=== PATIENT | female | born 1945 | race Caucasian/White ===

== ENCOUNTER 2022-05-04 11:13 | Emergency (ER) | payer MEDICARE, OTHER, SELFPAY ==
[2022-05-04 11:38] VITALS: BP 150/79; PULSE 59; RESP 18; TEMP 36.8; O2SAT 96; BMI 24.6
--- NOTE | 2022-05-04 13:42 | ED_ITS ---
HPI - General Adult General Date Seen: 05/04/22 Chief complaint: Unspecified Complaint, Adult Stated complaint: Swollen right finger/ring stuck Time Seen by Provider: 05/04/22 13:27 History of Present Illness HPI narrative: Patient is a 76-year-old woman who had minor fall a few days ago. She bumped her right hand, she had some soreness in her fingers, and over the past couple of days has developed swelling in the right ring finger to the point where she has not been able to remove her ring. She says that she does not otherwise have any pain in the finger and does not suspect any injury, but she can not remove the ring and because of that the finger is now painful. Denies any other injuries or complaints. Related Data Home Medications Medication Instructions Recorded Confirmed No Known Home Medications 05/04/22 05/04/22 Allergies Allergy/AdvReac Type Severity Reaction Status Date / Time No Known Drug Allergies Allergy Verified 05/04/22 11:38 [facility] Medical History (Updated 05/04/22 @ 13:46 by Adelina Hernandez RN) Clavicular asymmetry No significant past medical history Social History Smoking Status: Never smoker Do you use any of these nicotine containing products: None Second hand tobacco smoke exposure: Yes How often do you have a drink containing alcohol: never AUDIT-C Alcohol total score: 0 Non-prescribed substance use: denies use Exam Narrative: Exam Narrative: Examination of the right hand shows that the right ring finger is swollen and mildly discolored. She does not have any bony tenderness. Const: Vital Signs, click to edit/add: Vital Signs - 24 hr 05/04/22 11:38 Temperature 98.2 F Pulse Rate [Right Pulse Oximeter] 59 L Respiratory Rate 18 Blood Pressure [Ri ght Upper Arm] 150/79 H Pulse Oximetry 96 Documenting provider has reviewed patient's vital signs: yes Course Course Hospital Course: The ring on right ring finger was removed using the ring remover. She feels significantly improved. Has no other complaints and is ready for discharge. Vital Signs Vital signs: Initial Vital Signs Temperature 98.2 F 05/04/22 11:38 Temperature Source Temporal Artery Scan 05/04/22 11:38 Pulse Rate 59 L 05/04/22 11:38 Respiratory Rate 18 05/04/22 11:38 Blood Pressure 150/79 H 05/04/22 11:38 Blood Pressure Mean 102 07/05/22 11:38 Blood Pressure Position Sitting 05/04/22 11:38 Pulse Oximetry 96 05/04/22 11:38 Oxygen Delivery Method 05/04/22 11:38 Vital Signs Temperature 98.2 F 05/04/22 11:38 Pulse Rate 59 L 05/04/22 11:38 Respiratory Rate 18 05/04/22 11:38 Blood Pressure 150/79 H 05/04/22 11:38 Pulse Oximetry 96 05/04/22 11:38 Temperature 98.2 F 05/04/22 11:38 Pulse Rate 59 L 05/04/22 11:38 Respiratory Rate 18 05/04/22 11:38 Blood Pressure 150/79 H 05/04/22 11:38 Pulse Oximetry 96 05/04/22 11:38 Discharge Plan Discharge Clinical Impression: Ring or other jewelry causing external constriction, initial encounter Patient Disposition: Home, Self-Care Condition: Improved Additional Instructions: Return as needed Prescriptions: No Action No Known Home Medications 0RF Stand Alone Forms: MyHealth Info Instructions
== END 2022-05-04 13:55 | disposition home or self-care (01) ==
LOC: ED 13:59
PROVIDERS: Emergency Provider Emergency Medicine
DX: M79.644 Pain in right finger(s) (principal); W49.04XA Ring or other jewelry causing external constriction, initial encounter
CPT/HCPCS: 99282

== ENCOUNTER 2024-08-05 13:28 | Emergency (ER) | payer MEDICARE, OTHER, SELFPAY ==
[2024-08-05 13:44] VITALS: BP 123/72; PULSE 72; RESP 20; TEMP 36.6; O2SAT 97; BMI 22.1
[2024-08-05 13:54] VITALS: TEMP 36.3
--- NOTE | 2024-08-05 14:25 | CRLHL7_ITS ---
For Patients: As a result of the Century Cures Act, medical imaging exams and procedure reports are released immediately into your electronic medical record. You may view this report before your referring provider. If you have questions, please contact your health care provider. INDICATION: Vertigo, neck pain. TECHNIQUE: CTA neck with contrast bolus tracking, 3D angiographic rendering using maximum intensity projection (MIP) and images permanently archived. FINDINGS: There is minor left carotid atherosclerosis. There is no significant carotid artery stenosis or dissection. There is no significant vertebral artery stenosis or dissection. The soft tissues of the neck are within normal limits. The cervical spine is in normal alignment. The C4-C5-C6 vertebrae are fused Degenerative changes are noted in the cervical spine. IMPRESSION: No significant carotid or vertebral artery stenosis or dissection. Please note that all CT scans at this facility use dose modulation, iterative reconstruction, and/or weight-based dosing when appropriate to reduce radiation dose to as low as reasonably achievable. Dictated by Jeffrey Karimi MD @ 08/06/2024 6:18:36 AM (Electronically Signed)
--- NOTE | 2024-08-05 14:25 | CRLHL7_ITS ---
For Patients: As a result of the Century Cures Act, medical imaging exams and procedure reports are released immediately into your electronic medical record. You may view this report before your referring provider. If you have questions, please contact your health care provider. INDICATION: Vertigo, neck pain. TECHNIQUE: CTA head with contrast bolus tracking, 3D angiographic rendering using maximum intensity projection (MIP) and images permanently archived. FINDINGS: There is scattered intracranial atherosclerotic disease. There is normal opacification of the intracranial vasculature. There is no large vessel occlusion. No aneurysm is identified. 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 IMPRESSION: No acute intracranial abnormality at CTA. Please note that all CT scans at this facility use dose modulation, iterative reconstruction, and/or weight-based dosing when appropriate to reduce radiation dose to as low as reasonably achievable. Dictated by Jeffrey Karimi MD @ 08/06/2024 6:16:23 AM (Electronically Signed)
--- NOTE | 2024-08-05 14:25 | CRLHL7_ITS ---
For Patients: As a result of the Century Cures Act, medical imaging exams and procedure reports are released immediately into your electronic medical record. You may view this report before your referring provider. If you have questions, please contact your health care provider. Indication: VERTIGO, NECK PAIN, H/O LEFT SUBCLAV ANUER REPAIR Technique: Noncontrast axial CT of the cervical spine with coronal and sagittal reformats are provided. Comparison: No prior studies available for comparison at this institution. Findings: There is straightening of normal cervical spine alignment. Advanced degenerative changes at the atlantoaxial articulation. 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 No aggressive osseous lesions. No prevertebral or paraspinal edema. 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 Surgical clips in the left supraclavicular region. C1-2: No spinal canal stenosis. C2-3: No significant spinal canal stenosis or neural foraminal narrowing. C3-4: Grade 1 anterolisthesis. Advanced facet arthrosis. No significant spinal canal stenosis. [id number] right and mild left neural foramen narrowing. C4-5: No significant spinal canal stenosis or neural foramen narrowing. C5-6: No significant spinal canal stenosis or neural foraminal narrowing. C6-7: Moderate interspace narrowing. Shallow disc osteophyte complex. Left uncovertebral joint hypertrophy. No significant spinal canal stenosis or neural foraminal narrowing. C7-T1: No significant spinal canal stenosis or neural foramen narrowing. Impression: 1. No acute osseous abnormality. 2. 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 3. No significant spinal canal stenosis. 4. Mild to moderate right neural foraminal narrowing at C3-4. Otherwise no significant foraminal stenosis. Please note that all CT scans at this facility use dose modulation, iterative reconstruction, and/or weight-based dosing when appropriate to reduce radiation dose to as low as reasonably achievable. Dictated by Shane Cervantes MD @ 08/05/2024 4:10:31 PM (Electronically Signed)
--- NOTE | 2024-08-05 14:26 | CRLHL7_ITS ---
For Patients: As a result of the Century Cures Act, medical imaging exams and procedure reports are released immediately into your electronic medical record. You may view this report before your referring provider. If you have questions, please contact your health care provider. INDICATION: Vertigo, neck headache, history of left subclavian aneurysm repair TECHNIQUE: CT Head without i.v. contrast. Coronal and sagittal reformats were obtained. COMPARISON: None FINDINGS: CSF space: Unremarkable for age. Brain: No evidence of mass, acute infarction or hemorrhage is seen. No mass-effect or midline shift is seen. Mild diffuse cortical atrophy is noted. Encephalomalacia is present within the left frontal lobe. Calvarium: The visualized paranasal sinuses are well aerated. The mastoid air cells are clear. The patient is status post prior bilateral cataract removal. The visualized orbits are grossly unremarkable. The calvarium is unremarkable in appearance with no fractures identified. IMPRESSION: 1. No evidence of acute infarction, intracranial hemorrhage, or mass-effect seen. Dictated by Mack Pelletier MD @ 08/05/2024 4:02:30 PM Please note that all CT scans at this facility use dose modulation, iterative reconstruction, and/or weight-based dosing when appropriate to reduce radiation dose to as low as reasonably achievable. Dictated by: Mack Pelletier MD @ 08/05/2024 16:02:35 (Electronically Signed)
--- NOTE | 2024-08-05 14:26 | ED_ITS ---
HPI - General Adult General Date Seen: 08/05/24 Chief complaint: Dizziness/Vertigo Stated complaint: Dizziness Time Seen by Provider: 08/05/24 13:42 History of Present Illness HPI narrative: Very pleasant 78-year-old female presenting to the ER today with her daughter. They referred from the local urgent care for evaluation of neck pain, vertigo, with recent chiropractor visits. She has a past medical history of subclavian aneurysm, repaired [facility] about 6 or 7 years ago, colon polyps, but is otherwise healthy. She has been experiencing some fairly severe posterior upper neck pain for the past several weeks. She has no recent trauma or any trigger for that. It has been getting worse as the time goes on. She has been using a travel pillow around her neck which help stabilize her head. She had been trying to see a sports medicine doctor but could not get into them so instead she went to see a chiropractor. She had had several visits his chiropractor where they did massages and gentle techniques but it does not sound like she had any twisting of her neck or a specific cervical ?manipulation. ?. Last chiropractor fingers was about 2 weeks ago. She saw her primary care provider for this neck pain and had an x-ray that apparently showed advanced degenerative disc disease. She is scheduled to have an MRI for her neck in about 10 days. She also notes that she has had some unsteadiness where she has been having bleeding against the wall or hold onto things while walking for perhaps the last week or 2. No other symptoms with that. No focal numbness or weakness. No headaches. No blurry vision or visual disturbance. No nausea. No chest pain. No palpitations. She was rolling over this morning at about 2:00 a.m. to get out of bed to go to the bathroom when she had abrupt onset of spinning unsteadiness and vertigo with nausea. It was very intense and she had to lay back on her back in the bed. The intense spinning lasted less than a minute and then resolved. Since then she has been mildly unsteady. She has had at least 4 other episodes triggered by change in position (for instance, bending forward to manipulate a foot switch for her lamp) of intense but self limited spinning vertigo. Other that she just has her normal amount of unsteadiness that is been present for the past couple of weeks. No visual disturbance today. No headache. No tinnitus. No change in hearing. No chest pain. No palpitations. No back pain. No abdominal pain. Her neck pain is still quite bothersome for her, but she is fairly stoic about it. She says that sometimes over the past week or 2 that her neck is gets so p ainful that her head feels heavy like she will be able to hold her head up. Related Data Home Medications ?Medication ?Instructions ?Recorded ?Confirmed aspirin 81 mg tablet,delayed 81 mg PO QDAY 09/26/23 08/05/24 release (Adult Aspirin Regimen) calcium carbonate (Calcium 600) 600 mg PO QDAY 09/26/23 08/05/24 cholecalciferol (vitamin D3) 10 10 mcg PO QDAY 09/26/23 08/05/24 mcg (400 unit) capsule [id number] 8 mg-folic 400 1 tab PO QDAY 09/26/23 08/05/24 mcg-K 50 mcg-lutein 300 mcg tablet (Centrum Silver Women) latanoprost 0.005 % eye drops drp ophthalmic (eye) 08/05/24 Previous Rx's ?Medication ?Instructions ?Recorded diazepam 2 mg tablet 2 mg PO TID PRN #10 tabs 08/05/24 ondansetron HCl 4 mg tablet 4 mg PO Q8H PRN nausea and 08/05/24 vomiting #10 tabs Allergies Allergy/AdvReac Type Severity Reaction Status Date / Time No Known Drug Allergies Allergy Verified 08/05/24 15:38 [facility] Medical History Right shoulder pain (~2018) ?M25.511 - Pain in right shoulder (ICD-10) Chest heaviness ?R07.89 - Other chest pain (ICD-10) 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 Alert. Conversant. Non toxic. HENT: Head: Atraumatic. Nose: Nose normal. Mouth/Throat: Oral mucosa is clear and moist. no trismus. Pharynx normal. Tonsils symmetric. No tonsillar enlargement, erythema, or exudate. Eyes: Conjunctivae normal. EOM normal. Pupils equal, round, and reactive to light. No scleral icterus. Neck: Wearing a travel pillow to help support her head. She is complaining of posterior upper neck pain but no specific point tenderness. No crepitus. No swelling. No rash. She has limited flexion and extension due to pain. She is able to rotate about 30? laterally but limited by pain.. Anterior Neck supple. No tracheal deviation present. Cardiovascular: Normal rate, regular rhythm. No gallop. No friction rub. No murmur heard. Symmetric radial artery pulses Pulmonary/Chest: Effort normal. No stridor. No respiratory distress. No wheezes. No rales. No rhonchi .No tenderness. Abdominal: Soft.. No distension. No mass. No tenderness. No rebound. No guarding. Musculoskeletal: RUE: Normal range of motion. No tenderness. No deformity LUE: Normal range of motion. No tenderness. No deformity RLE: Normal range of motion. No edema. No tenderness. No deformity LLE: Normal range of motion. No edema. No tenderness. No deformity Lymph: No cervical adenopathy. Neurological: Mental status normal. Attention normal. Alert and oriented x3. GCS 15. Memory normal. Speech fluent. Cognition normal. Cranial Nerves intact II-XII except I did not formally test gag or visual acuity. EOMI. Palate elevates symmetrically and tongue protrudes in the midline. Strength: 5/5 trapezius on the right and left 5/5 deltoid on the right and left 5/5 biceps on the right and left 5/5 triceps on the right and left 5/5 bookmaker map on the right and left 5/5 thumb opposition on the right and le ft 5/5 finger abduction on the right and le ft 5/5 hip flexors (L3) on the right and le ft 5/5 quadriceps (L4) on the right and lef t 5/5 tibialis anterior on the right and l eft 5/5 EHL (L5) on the right and left 5/5 gastrocnemius (S1) on the right and left 5/5 hamstring on the right and left Sensation intact to light touch in both upper extremities (C4-T1) Sensation intact to light touch in Both lower extremities (L4-S1). Finger to nose and coordination normal. Gait slow and she needs to lean against a doorjamb a she goes to the door. She is able to take a couple of steps without holding onto anything but then wants to lean against something. Gait is not really wide-based. . Skin: Skin is warm and dry. No rash noted. No pallor. Normal capillary refill. Psychiatric: Normal mood. Normal affect. Const: Vital Signs, click to edit/add: Vital Signs - 24 hr 08/05/24 13:44 08/05/24 13:54 08/05/24 16:00 Temperature 98 F 97.3 F L Pulse Rate [Pulse Oximeter] 72 70 Respiratory Rate 20 14 Blood Pressure [Ri ght Upper Arm] 123/72 149/77 H Pulse Oximetry 97 98 Oxygen Delivery Me thod Room Air Room Air 08/05/24 17:18 08/05/24 18:28 08/05/24 19:00 Temperature Pulse Rate [Pulse Oximeter] 62 95 Respiratory Rate 14 14 Blood Pressure [Ri ght Upper Arm] 143/60 H 143/68 H Pulse Oximetry 92 95 Oxygen Delivery Me thod Room Air Room Air Course Course ED Course: Recheck-not much improvement after meclizine. Reevaluation(s) Reevaluation #1: Recheck-reports feeling much better after diazepam 2.5 mg and Zofran 4 mg IV. Ambulating in the hallway in her own power. Vital Signs Vital signs: Initial Vital Signs Temperature 98 F 08/05/24 13:44 Temperature Source Temporal Artery Scan 08/05/24 13:44 Pulse Rate 72 08/05/24 13:44 Pulse Rhythm Regular 08/05/24 13:44 Respiratory Rate 20 08/05/24 13:44 Blood Pressure 123/72 08/05/24 13:44 Blood Pressure Mean 89 08/05/24 13:44 Pulse Oximetry 97 08/05/24 13:44 Oxygen Delivery Method Room Air 08/05/24 13:44 Vital Signs Temperature 98 F 08/05/24 13:44 Pulse Rate 72 08/05/24 13:44 Respiratory Rate 20 08/05/24 13:44 Blood Pressure 123/72 08/05/24 13:44 Pulse Oximetry 97 08/05/24 13:44 Oxygen Delivery Method Room Air 08/05/24 13:44 Temperature 97.3 F L 08/05/24 13:54 Pulse Rate 95 08/05/24 19:00 Respiratory Rate 14 08/05/24 19:00 Blood Pressure 143/68 H 08/05/24 19:00 Pulse Oximetry 95 08/05/24 18:28 Oxygen Delivery Method Room Air 08/05/24 18:28 Medications Administered Medications: Discontinued Medications Generic Name Dose Route Start Last Admin Trade Name Freq PRN Reason Stop Dose Admin Diazepam 2.5 mg 08/05/24 16:52 08/05/24 17:10 Diazepam 5 Mg/Ml Inj IV 08/05/24 16:53 2.5 mg ONCE ONE Administration Meclizine HCl 25 mg 08/05/24 14:25 08/05/24 14:33 Meclizine Hcl 25 Mg Tablet PO 08/05/24 14:26 25 mg ONCE ONE Administration Ondansetron HCl 4 mg 08/05/24 16:52 08/05/24 17:10 Ondansetron 2 Mg/Ml Inj IVP 08/05/24 16:53 4 mg ONCE ONE Administration Medical Decision Making [facility] Narrative Medical decision making narrative: This patient presents for evaluation of dizziness c/w vertigo. Differential does include other causes of nonspecific dizziness however patient gives a pretty good description for episodic vertigo. We did check a screening EKG to look for ischemia or arrhythmia and it is normal. Screening labs to look for electrolyte disturbance, anemia, myocardial ischemia are also normal. Clinical presentation is highly suggestive for vertigo. The differential diagnosis of vertigo is broad and includes common etiologies such as menieres disease, labyrinthitis, benign positional vertigo, otitis media, etc. More serious etiologies considered include central etiologies such as tumor, intracerebral bleed, dissection, ischemic cerebral vascular accident. She was sent from the urgent care because of the vertigo and recent chiropractic neck manipulation. Concern was for vertebral dissection. However, history from the patient as she actually has not been to her chiropractor in 2 weeks and that she had some massage and mild interventions but did not have any neck cracking or forceful manipulations of her neck. Her discrete episodes of intense vertigo today would be most consistent with a peripheral cause such as BPPV. Were not able to perform a Fang-Hallpike maneuver here because of her associated neck pain. She has also had some unsteadiness for the past 2 weeks or more, which could suggest some other subtle central cause. Overall we decided to go ahead with CT imaging (MRI not available here in [place] on the weekend) to include her brain as well as her cervical vasculature as well as her cervical spine bony area. Fortunately CT scans look good. No evidence for vertebral dissection or vertebral basilar insufficiency or atherosclerotic disease. Head CT normal. The history, physical exam including detailed neurologic exam, and workup in the emergency room suggests a benign cause of vertigo today. Patient feels improved after interventions noted above. She and her daughter are comfortable with outpatient management. Really she has had some degree of unsteadiness for the past few weeks. Therefore would not really benefit from hospitalization tonight for stroke workup. However symptoms are not improved within next 1-2 days, should have outpatient follow-up and consider brain MRI. Return to the ER if worse. Further outpatient management is indicated with vertigo medications. Instymeds prescriptions for Ativan 0.5 mg t.i.d. p.r.n. and Zofran 4 mg ODT t.i.d. p.r.n. Prescriptions to her pharmacy at [facility] for Zofran and diazepam were not able to be filled tonight because the pharmacy is closed on Tuesday evening Lab Data Labs: Lab Results 08/05/24 Range/Units 14:38 WBC 5.47 (4.50-11.00) K/uL RBC 3.84 L (4.00-5.20) m/uL Hgb 12.2 (12.0-16.0) gm/dL Hct 37.0 (33.0-51.0) % MCV 96 (80-100) fL MCH 32 (26-34) pg MCHC 33 (32-36) gm/dL RDW Coeff of Raimundo 12.4 (11.5-15.5) % Plt Count 284 (140-440) K/uL Neut % (Auto) 53.2 (42.0-72.0) % Lymph % (Auto) 33.5 (20-44) % Hughes % (Auto) 9.5 (0.0-11.0) % Eos % (Auto) 2.6 (0.0-7.0) % Baso % (Auto) 0.5 (0.0-3.0) % Neut # (Auto) 2.91 (1.7-7.0) K/uL Lymph # (Auto) 1.83 (0.90-2.90) K/uL Hughes # (Auto) 0.50 (0.00-0.90) K/UL Eos # (Auto) 0.14 (0.00-0.50) K/uL Baso # (Auto) 0.03 (0.00-0.30) K/uL Abs Immat Gran (auto) 0.04 (0.00-0.30) K/uL Imm/Tot Granulo (auto) 0.7 % Sodium 140 (135-149) mmol/L Potassium 3.8 (3.6-5.1) mmol/L Chloride 106 (96-114) mmol/L Carbon Dioxide 29 (20-32) mmol/L Anion Gap 5 L (7-15) mEq/L BUN 19 (7-30) mg/dL Creatinine 0.7 (0.5-1.5) mg/dL Estimated Creat Clear 37.12 Estimated GFR 87 ml/min Glucose 103 (60-115) mg/dL Calcium 9.5 (8.4-10.6) mg/dL Troponin I < 0.01 L (0.01-0.04) ng/mL Imaging Data CT scan - head: Attestation: I have reviewed the pertinent imaging results. Radiologist's impression: IMPRESSION: 1. No evidence of acute infarction, intracranial hemorrhage, or mass-effect seen. CT C spine: Attestation: I have reviewed the pertinent imaging results. Radiologist's impression: Impression: 1. No acute osseous abnormality. 2. 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 3. No significant spinal canal stenosis. 4. Mild to moderate right neural foraminal narrowing at C3-4. Otherwise no significant foraminal stenosis. CTA head and neck: Attestation: I have reviewed the pertinent imaging results. Radiologist's impression: Preliminary Report: 1. No evidence of proximal artery occlusion, high grade stenosis, aneurysm, dissection, or vascular malformation. 2. 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 3. Minimal plaque at the left ICA bifurcation. No ICA stenosis. Unremarkable vertebral arteries. Preliminary Report: 1. No evidence of proximal artery occlusion, high grade stenosis, aneurysm, dissection, or vascular malformation. 2. Final report per neurointerventional radiology service ECG Data Attestation: I personally reviewed and interpreted this ECG as follows: Interpretation: Normal sinus rhythm Rate: 64 NM: 148 QRS axis: Left axis deviation. Incomplete right bundle branch block pattern ST segment/T wave: No ST segment elevation or depression. Nonspecific T-wave flattening in lead 3, AVF, V3-V6 QTc: 422 Discharge Plan Discharge Clinical Impression: Vertigo, Neck pain Patient Disposition: Home, Self-Care Condition: Stable Instructions: Vertigo (DC), Neck Pain (ED) Additional Instructions: As we discussed, please come back to the ER right away if you have worsening symptoms, especially worsening dizzy spells, trouble walking, worsening neck pain or headache, uncontrolled vomiting, or if you have any new symptoms such as chest pain or palpitations. Please recheck with your regular doctor within 1-2 days Use the vertigo medication if needed. Use caution with diazepam because it can cause drowsiness. Prescriptions: New ondansetron HCl 4 mg tablet 4 mg PO Q8H PRN (Reason: nausea and vomiting) Qty: 10 0RF diazepam 2 mg tablet 2 mg PO TID PRNQty: 10 0RF No Action cholecalciferol (vitamin D3) 10 mcg (400 unit) capsule 10 mcg PO QDAY calcium carbonate [Calcium 600] 600 mg calcium (1,500 mg) tablet 600 mg PO QDAY aspirin [Adult Aspirin Regimen] 81 mg tablet,delayed release (DR/EC) 81 mg PO QDAY Centrum Silver Women 8 mg iron-400 mcg-50 mcg tablet 1 tab PO QDAY latanoprost 0.005 % drops ophthalmic (eye) Follow Up/Referrals: Lata Olivera PA-C [Primary Care Provider] - Stand Alone Forms: [employer] Instructions
[2024-08-05] MEDS: MECLIZINE HCL 25 MG TABLET PO (14:33)
--- OUTSIDE RECORDS SUMMARY | 2024-08-05 14:34 | XMS_ITS | Clinical Summary ---
Author Organization [facility] Address [place], [place] [address] Care Team Providers Care Marine Resource Economist Name Role Phone Soto Romero MD Unavailable [phone] Lata Olivera Primary Care Provider Allergies Active Allergy Reactions Criticality Noted Date Comments Blood-Group Specific Substance Other - Describe In Comment Field 01/09/2018 Patient has a nonspecific antibody. Blood product orders may be delayed. Draw one red top and two purple top tubes for all Type and Screen/Crossmatch orders. Medications Medication Sig Dispensed Refills Start Date End Date Status aspirin chewable 81 mg chewable tablet Take 81 mg by mouth. Active calcium carbonate (CALTRATE) 600 mg calcium (1,500 mg) tablet Take 1 tablet by mouth. Active cholecalciferol (VITAMIN D-3) 2,000 unit capsule Take 2,000 Int'l Units by mouth. Active Herbal Drugs tablet Take by mouth. A ctive FOLIC ACID/MULTIVIT-MIN/LUTE IN (CENTRUM SILVER ORAL) Take 1 tablet by mouth. Active latanoprost (XALATAN) 0.005 % ophthalmic solution INSTILL ONE DROP into the left eye AT BEDTIME* 06/16/2024 Active Active Problems Problem Noted Date Diagnosed Date Abnormal EKG 01/09/2018 Subclavian aneurysm 12/09/2017 Adenomatous colon polyp 10/14/2017 Overview (02/02/2023): Colonoscopy 09/2017 polyp repeat in 5 years Colonoscopy 12/2022 TA, no follow up needed Encounters Date Type Department Care Team Description 07/25/2024 12:15 PM CDT Ancillary Procedure [address] [place] [address] 07/25/2024 11:50 AM CDT Office Visit [facility] [address] [place] [address] Lata Olivera PA Musculoskeletal Problem (Neck pain / tightness, hurts to turn neck x 5 months. Has been going to chiropractor x 2 months but not much improvement. No known injury) 07/25/2024 Travel 05/25/2024 Telephone [facility] [address] [place] [address] Lata Olivera PA Referral (ORTHOPEDICS ) 05/25/2024 Nurse Triage [facility] [address] [place] [address] Lata Olivera PA Neck Pain/problem from Last 3 Months Immunizations Name Administration Dates Next Due COVID-19 vaccine (Aventones 30mcg/0.3mL) PF, MDV 01/13/2021,12/23/2020 Influenza A (H1N1), Inactivated 10/20/2009 Influenza A (H1N1), Inactiva lazaro (Age >=3 Years) 10/20/2009 Influenza Virus, Unspecified 07/24/2013, 08/10/2012,09/10/2010,2008,12/04/2008 Influenza, High-dose Inactivated 08/09/2018,04/2017 Influenza, High-dose Quadriv alent Inactivated 07/19/2023,08/06/2022 Influenza, IIV3 (Age >=3 years) 07/24/2013 Influenza, IIV4 07/14/2020, 4,07/24/2013,2011,09/10/2010,07/23/2009,12/04/2008 Influenza, Inactivated AIIV4 (Age 65+ Years) Preserv Free 07/28/2021 Influenza, Inactivated IIV3 (Age 65+ Years) Preserv Free 07/28/2019 Pneumococcal Poly,23-Valent (Pneumovax) 05/18/2011 Pneumococcal conj 13-Valent (Prevnar 13) 07/09/2015 Td (Age >=7 Years) 05/07/2010,01/28/2000 Td, Preservative Free (age > = 7 Years) 05/07/2010,01/28/2000 Tuberculin (PPD) 10/20/2009 Family History Medical History Relation Name Comments Cancer-colon Father x 2, dx older t nieto 60 yr Dementia Mother Uterine cancer Mother Lung cancer Sister Cancer-breast No Family History Cancer-ovarian No Family History Relation Name Status Comments Father Mother Sister Social History Tobacco Use Types Packs/Day Years Used Date Smoking Tobacco: Never Smokeless Tobacco: Never Tobacco Cessation:Counseling Given: Not Answered Alcohol Use Standard Drinks/Week Comments No 0 (1 standard drink = 0.6 oz pur e alcohol) PHQ-2 Answer Date Recorded PHQ-2 TOTAL SCORE 0 12/05/2023 Social Connections Answer Date Recorded Frequency of Communication with Friends and Fami ly 0 07/25/2024 Financial Resource Strain Answer Date R ecorded Difficulty of Paying Living Expenses 3 07/25/2024 Difficulty of Paying Living Expenses Not on file 07/25/2024 Food Insecurity Answer Date Recorded Worried About Running Out of Food in the Last Ye ar 1 07/25/2024 Transportation Needs Answer Date Record ed Lack of Transportation (Medical) 1 07/25/2024 Housing Stability Answer Date Recorded Unable to Pay for Housing in the Last Year 1 07/25/2024 Sex and Gender Information Value Date Recorded Sex Assigned at Not on file Gender Identity Not on file Sexual Orientation Not on file Obstetrics History Para Term AB IAB SAB Ectopic Multiple Livin g Live Births 3 2 Date Outcome GA Total Labor Labor/2nd/3rd Weight Sex Type Anes PTL Ade A1 A5 Name Clin Last Filed Vital Signs Vital Sign Reading Time Taken Comments Blood Pressure 109/68 07/25/2024 11:48 AM CDT Pulse 71 07/25/2024 11:48 AM CDT Temperature 37.1 ??C (98.7 ??F) 09/14/2019 7:36 AM CS T Respiratory Rate 14 01/27/2023 12:15 PM CDT Oxygen Saturation 96% 12/28/2023 12:55 PM CHIEF ULTRASOUND TECHNOLOGIST Inhaled Oxygen Concentration - - Weight 57.6 kg (127 lb) 07/25/2024 11:48 AM CDT Height 158.8 cm (5' 2.5) 12/28/2023 12:55 PM CS T Body Mass Index 22.86 12/28/2023 12:55 PM CHIEF ULTRASOUND TECHNOLOGIST Plan of Treatment Upcoming Encounters Date Type Department Care Team (Late st Contact Info) Description 08/16/2024 9:30 AM CDT Ancillary Procedure [facility] [address] [place] [address] 09/05/2024 7:40 AM CHIEF ULTRASOUND TECHNOLOGIST Office Visit [facility] [address] [place] [address] Tatyana Mayo Ade, DO [address] [place] [address] Health Maintenance Due Date Last Done Comments Tdap 1956 Zoster (shingles) series for age 50+ (1 of 2) 1993 RSV vaccine for adults or (1 - 1-dose 75+ series) 2018 Tetanus booster 05/07/2020 05/07/2010, 05/2010, 01/28/2000, Additional history exists COVID-19 vaccine series ( season) 2024 08/11/2023, 08/06/2022, 05/28/2022, Additional history exists Influenza for age 65+ 07/01/2024 07/19/2023 , 08/06/2022, 07/28/2021, Additional history exists Depression screening for age 12+ 12/05/2024 12/05/2023, 10/12/2022, 10/12/2022, Additional history exists Medicare Wellness for age 65+ 12/05/2024, 10/12/2022, 09/22/2021, Additional history exists BMI (ht and wt on same day) for age 18+ 12/28/2024 12/28/2023, 12/05/2023, 11/24/2022, Additional history exists Pneumococcal series for age 65+ Completed 5, 05/18/2011 DEXA/DXA scan for age 65+ Completed 08/22/2018 Procedures Procedure Name Priority Date/Time Associated Diagnosis Comments XR SPINE CERVICAL 3 VIEWS Routine 07/25/2024 12:24 PM CDT Neck pain XR DXA BONE DENSITY 2 SITES AXIAL Routine 08/22/2018 2:19 PM CDT Menopause from Last 3 Months or Most Recently Relevant to Health Maintenance Results * XR SPINE CERVICAL 3 VIEWS (07/25/2024 12:24 PM CDT) Anatomical Region Laterality Modality CERVICAL SPINE Computed Radiogr aphy 07/25/2024 6:34 PM CDT Impressions 07/25/2024 6:34 PM CDT Cervical degenerative changes. Dictated by Adán Irene MD @ 07/25/2024 6:34:35 PM (Electronically Signed) Narrative 07/25/2024 6:34 PM CDT For Patients: ??As a result of the Cures Act, medical imaging exams and procedure reports are released immediately into your electronic medical record. ??You may view this report before your referring provider. ??If you have questions, please contact your health care provider. INDICATION: Neck pain. TECHNIQUE: Cervical spine three views. COMPARISON: None. FINDINGS: Mild multilevel degenerative changes of the cervical spine greatest at C6-7. Partial fusion of the C4 through C6 vertebra. Bone demineralization. No acute or other osseous abnormality demonstrated. Multiple surgical clips project in the left supraclavicular region. Soft tissues elsewhere as imaged are unremarkable. ?? Procedure Note Adán Irene DO - 07/25/2024 For Patients: As a result of the Cures Act, medical imagingexams and procedure reports are released immediately into your electronicmedical record. You may view this report before your referring provider.If you have questions, please contact your health care provider. INDICATION: Neck pain. TECHNIQUE: Cervical spine three views. COMPARISON: None. FINDINGS: Mild multilevel degenerative changes of the cervical spine greatest atC6-7. Partial fusion of the C4 through C6 vertebra. Bone demineralization.No acute or other osseous abnormality demonstrated. Multiple surgicalclips project in the left supraclavicular region. Soft tissues elsewhereas imaged are unremarkable. IMPRESSION: Cervical degenerative changes. Dictated by Adán Irene MD @ 07/25/2024 6:34:35 PM (Electronically Signed) [facility] * (ABNORMAL) XR DXA BONE DENSITY 2 SITES AXIAL [55480.1] (08/22/2018 2:19 PM CDT) Anatomical Region Laterality Modality Spine, HIPS, HIPL, HIPR Other Narrative 08/24/2018 10:39 AM CDT Please see scanned document for results of this study. Jeannie Riojas NP DEXA from Last 3 Months or Most Recently Relevant to Health Maintenance Advance Directives Documents on File Type Date Recorded Patient Horologist Apprentice Expl anation Healthcare Directive 12/07/2019 020 * Full Code (Latest Code Status on File) Date Activated Date Inactivated Comments 01/10/2018 6:40 AM 01/16/2018 1:15 PM Care Teams Marine Resource Economist Relationship Specialty Start Date End Date Lata Olivera PA [address] [place] [address] PCP - General Physician Glue Bone Crusher 09/14/19 Soto Romero MD [address] [facility] [address] [place] [address] Surgery - Ophthalmology 03/07/18
[2024-08-05 14:46] LABS: Basophils Absolute Auto 0.03 K/uL (0.00-0.30); Basophils Percent Auto 0.5 % (0.0-3.0); Eosinophils Absolute Auto 0.14 K/uL (0.00-0.50); Eosinophils Percent Auto 2.6 % (0.0-7.0); Hemoglobin* 12.2 gm/dL (12.0-16.0); Immature Granulocytes Abs Auto 0.04 K/uL (0.00-0.30); Immature Granulocytes Pct Auto 0.7 %; Lymphocytes Absolute Auto 1.83 K/uL (0.90-2.90); Lymphocytes Percent Auto 33.5 % (20-44); Mean Corpuscular HGB Conc 33 gm/dL (32-36); Mean Corpuscular Hemoglobin 32 pg (26-34); Mean Corpuscular Volume 96 fL (80-100); Monocytes Percent Auto 9.5 % (0.0-11.0); Neutrophils Absolute Auto 2.91 K/uL (1.7-7.0); Neutrophils Percent Auto 53.2 % (42.0-72.0); Platelet Count* 284 K/uL (140-440); RDW Coefficient of Variation % 12.4 % (11.5-15.5); Red Blood Count 3.84 m/uL (4.00-5.20); White Blood Count* 5.47 K/uL (4.50-11.00)
[2024-08-05 14:52] LABS: Slide Review Reflex No
[2024-08-05 15:07] LABS: Chloride* 106 mmol/L (96-114); Sodium* 140 mmol/L (135-149)
[2024-08-05 15:08] LABS: Potassium* 3.8 mmol/L (3.6-5.1)
[2024-08-05 15:10] LABS: Creatinine* 0.7 mg/dL (0.5-1.5); Est. Creatinine Clearance* 37.12; Estimated Glomerular Filt Rate 87 ml/min
[2024-08-05 15:11] LABS: Anion Gap 5 mEq/L (7-15); Blood Urea Nitrogen* 19 mg/dL (7-30); Calcium* 9.5 mg/dL (8.4-10.6); Carbon Dioxide* 29 mmol/L (20-32); Glucose* 103 mg/dL (60-115)
[2024-08-05 15:23] LABS: Troponin I* < 0.01 ng/mL (0.01-0.04)
[2024-08-05 16:00] VITALS: BP 149/77; PULSE 70; RESP 14; O2SAT 98
[2024-08-05] MEDS: diazePAM 5 MG/ML inj 2.5 MG IV (17:10)
[2024-08-05] MEDS: ONDANSETRON 2 MG/ML inj 4 MG IVP (17:10)
[2024-08-05 17:18] VITALS: O2SAT 92
[2024-08-05 18:28] VITALS: BP 143/60; PULSE 62; RESP 14; O2SAT 95
[2024-08-05 19:00] VITALS: BP 143/68; PULSE 95; RESP 14
== END 2024-08-05 19:02 | disposition home or self-care (01) ==
PROVIDERS: Emergency Provider Emergency Medicine; PCP Physician Assistant Medical
DX: R42 Dizziness and giddiness (principal); M54.2 Cervicalgia
CPT/HCPCS: 36415; 70450; 70496; 70498; 72125; 80048; 84484; 85025; 93005; 96374; 96375; 99284; 99285; A9270; J2405; J3360; Q9967

== ENCOUNTER 2024-09-06 15:44 | Outpatient (RCR) | payer MEDICARE, OTHER, SELFPAY | END 2024-09-14 12:18 | disposition home or self-care (01) | PROVIDERS: PCP Physician Assistant Medical; Visit Provider Family Medicine | DX: Z91.89 Other specified personal risk factors, not elsewhere classified (principal); Z51.89 Encounter for other specified aftercare | CPT/HCPCS: 97165; 97535 ==

== ENCOUNTER 2025-06-27 17:03 | Emergency (ER) | payer MEDICARE, OTHER, SELFPAY ==
[2025-06-27] VITALS (9 sets, daily range): BP systolic 161–177; BP diastolic 71–81; PULSE 55–61; RESP 13–33; TEMP 36.4; O2SAT 94–97; BMI 25.6
--- OUTSIDE RECORDS SUMMARY | 2025-06-27 17:05 | XMS_ITS | Clinical Summary ---
Author Organization [facility] Address [address] [place] [id number] Care Team Providers Care Supervisor Dials Name Role Phone Soto Romero MD Unavailable [phone] Lata Olivera Primary Care Provider Allergies Active Allergy Reactions Criticality Noted Date Comments Blood-Group Specific Substance Other - Describe In Comment Field 01/09/2018 Patient has a nonspecific antibody. Blood product orders may be delayed. Draw one red top and two purple top tubes for all Type and Screen/Crossmatch orders. Medications aspirin chewable 81 mg chewable tablet Take 81 mg by mouth. Active calcium carbonate (CALTRATE) 600 mg calcium (1,500 mg) tablet Take 1 tablet by mouth. Active cholecalciferol (VITAMIN D-3) 2,000 unit capsule Take 2,000 Int'l Units by mouth. Active Herbal Drugs tablet Take by mouth. Activ e FOLIC ACID/MULTIVIT-M IN/LUTEIN (CENTRUM SILVER ORAL) Take 1 tablet by mouth. Active latanoprost (XALATAN) 0.005 % ophthalmic solution INSTILL ONE DROP into the left eye AT BEDTIME* 4 Active medication order composerIndicat ions:TOM (obstructive sleep apnea) 11/05/2024 AHI- 13; diagnosis obstructive sleep apnea MRD #1 1 unit 5 Active CPAPIndications :TOM (obstructive sleep apnea) RESMED CPAP (E0601) machine for home use at pressure: 5-15cmw, Choice of mask (A7030 or A7034) w/full face cushion (A7031) x1/mo, nasal cushion (A7032) x2/mo, or nasal pillows (A7033) x 2/mo; Length of Need: 99 months; Frequency of use: Daily 1 Each 5 Active Active Problems Problem Noted Date Diagnosed Date Potential for cognitive impairment 09/05/2024 Abnormal EKG 01/09/2018 Subclavian aneurysm 12/09/2017 Adenomatous colon polyp 10/14/2017 Overview (02/02/2023): Colonoscopy 09/2017 polyp repeat in 5 years Colonoscopy 12/2022 TA, no follow up needed Encounters Date Type Department Care Team Description 06/27/2025 Nurse Triage [facility] [address] [place] [address] Lata Olivera PA Fatigue; Dizziness from Last 3 Months Immunizations Immunization Administration Dates Next Due COVID-19 vaccine ([employer] 30mcg/0.3mL) PF, MDV 01/13/2021,12/23/2020 Influenza A (H1N1), Inactivated 10/20/2009 Influenza A (H1N1), Inactiva lazaro (Age >=3 Years) 10/20/2009 Influenza Virus, Unspecified 07/24/2013, 08/10/2012,09/10/2010,2008,12/04/2008 Influenza, High-dose Inactivated 08/09/2018,100 04/2017 Influenza, High-dose Quadriv alent Inactivated 07/19/2023,08/06/2022 Influenza, [...] Answer Date Recorded PHQ-2 TOTAL SCORE 0 09/05/2024 Social Connections Answer Date Recorded Do you often feel lonely or isolated from those around you? 0 07/25/2024 Financial Resource Strain Answer Date R ecorded Difficulty of Paying Living Expenses 3 07/25/2024 Difficulty of Paying Living Expenses Not on file 07/25/2024 Food Insecurity Answer Date Recorded Do you worry your food will run out before you are able to buy more? 1 07/25/2024 Transportation Needs Answer Date Record ed Does lack of transportation keep you from medica l appointments? 1 07/25/2024 Does lack of transportation keep you from work, meetings or getting things that you need? 1 07/25/2024 Housing Stability Answer Date Recorded What is your housing situation today? 1 07/25/2024 Utilities Answer Date Recorded Do you have trouble paying f or utilities (for example, heat, electricity, water, phone)? 1 07/25/2024 Comments No Sex and Gender Information Value Date Recorded Sex Assigned at Not on file Legal Sex Female 2:48 PM AIRCRAFT ENGINE CYLINDER MECHANIC Gender Identity Not on file Sexual Orientation Not on file Obstetrics History Para Term AB IAB SAB Ectopic Multiple Livin g Live Births 3 2 Date Outcome GA Total Labor Labor/2nd/3rd Weight Sex Type Anes PTL Ade A1 A5 Name Clin Last Filed Vital Signs Vital Sign Reading Time Taken Comments Blood Pressure 137/76 01/08/2025 9:58 AM CDT Pulse 65 01/08/2025 9:58 AM CDT Temperature 37.1 C (98.7 F) 09/14/2019 7:36 AM AIRCRAFT ENGINE CYLINDER MECHANIC Respiratory Rate 14 01/27/2023 12:15 PM CDT Oxygen Saturation 97% 01/08/2025 9:58 AM CDT Inhaled Oxygen Concentration - - Weight 63.5 kg (140 lb) 01/08/2025 9:58 AM CDT Height 158.8 cm (5' 2.52) 09/21/2024 1:22 PM CS T Body Mass Index 25.18 09/21/2024 1:22 PM AIRCRAFT ENGINE CYLINDER MECHANIC Plan of Treatment Upcoming Encounters Date Type Department Care Team (Late st Contact Info) Description 07/03/2025 8:20 AM CDT Office Visit [facility] [address] [place] [address] Votel, Rory Garnica MD [address] [place] [address] Health Maintenance Due Date Last Done Comments Zoster (shingles) series for age 50+ (1 of 2) 1993 RSV vaccine for adults or (1 - 1-dose 75+ series) 2018 Tetanus booster 05/07/2020 05/07/2010, 0705/2010, 01/28/2000, Additional history exists Medicare Wellness for age 65+ 12/05/2024 12/05/2023, 10/12/2022, 09/22/2021, Additional history exists COVID-19 vaccine series ( season) 2025 09/13/2024, 08/11/2023, 08/06/2022, Additional history exists Influenza Vaccine (#1) 2025 , 07/14/2020, 07/28/2019, Additional history exists Depression screening for age 12+ 09/06/2025 09/06/2024, 09/05/2024, 12/05/2023, Additional history exists BMI (ht and wt on same day) for age 18+ 09/21/2025 09/21/2024, 12/28/2023, 12/05/2023, Additional history exists Pneumococcal series for age 50+ Completed 07/09/2015, 05/18/2011 DEXA/DXA scan for age 65+ Completed 08/22/2018 Hepatitis B series for 19+ Aged Out N o longer eligible based on patient's age to complete this topic Procedures Procedure Name Priority Date/Time Associated Diagnosis Comments XR DXA BONE DENSITY 2 SITES AXIAL Routine 08/22/2018 2:19 PM CDT Menopause from Last 3 Months or Most Recently Relevant to Health Maintenance Results * (ABNORMAL) XR DXA BONE DENSITY 2 SITES AXIAL [[id number]] (08/22/2018 2:19 PM CDT) Anatomical Region Laterality Modality Spine, HIPS, HIPL, HIPR Other Narrative 08/24/2018 10:39 AM CDT Please see scanned document for results of this study. us Jeannie Riojas NP DEXA F inal Result from Last 3 Months or Most Recently Relevant to Health Maintenance Insurance MEDICARE PART B HB ONLY [place] BL[place] HB ONLY MEDICARE PART A HB ONLY MEDICA PRIME SOLUTIONS MR PB ONLY MEDICA PRIME SOLUTION HB Advance Directives Documents on File Type Date Recorded Patient Water Ski Assembler Expl anation Healthcare Directive 12/07/2019 020 * Full Code (Latest Code Status on File) Date Activated Date Inactivated Comments 01/10/2018 6:40 AM 01/16/2018 1:15 PM Care Teams Supervisor Dials Relationship Specialty Start Date End Date Lata Olivera PA [address] [place] [address] PCP - General Physician Door Tender 09/14/19 Soto Romero MD [address] [place] [address] Surgery - Ophthalmology 03/07/18
--- NOTE | 2025-06-27 17:34 | CRLHL7_ITS ---
For Patients: As a result of the Century Cures Act, medical imaging exams and procedure reports are released immediately into your electronic medical record. You may view this report before your referring provider. If you have questions, please contact your health care provider. INDICATION: Posterior headaches. Dizziness. TECHNIQUE: CT of the head without contrast. Coronal and sagittal reformats are included. COMPARISON: Head CT from 08/05/2024. FINDINGS: No CT evidence of acute cortical infarct. 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 No hyperdense vessels to suggest intracranial thrombus. No acute intracranial hemorrhage. No mass effect or midline shift. No hydrocephalus or extra-axial collections. Patchy white matter hypoattenuation, typical for chronic microvascular ischemic change. No acute osseous abnormalities. Mastoid air cells and paranasal sinuses are clear. Normal soft tissues. IMPRESSION: IMPRESSION:1. No CT evidence of acute cortical infarct. No acute intracranial hemorrhage. No other acute intracranial findings. Please note that all CT scans at this facility use dose modulation, iterative reconstruction, and/or weight-based dosing when appropriate to reduce radiation dose to as low as reasonably achievable. Dictated by Jacky Valencia MD @ 06/27/2025 6:23:25 PM (Electronically Signed)
--- NOTE | 2025-06-27 17:41 | ED.GENADULT ---
HPI - General Adult General Date Seen: 06/27/25 Chief complaint: Weakness Stated complaint: weakness,dizziness,pressure/headache back head/nec Time Seen by Provider: 06/27/25 17:22 Source: patient and family Mode of arrival: ambulatory Limitations: no limitations History of Present Illness HPI narrative: Patient is an 79-year-old female presenting to the emergency department with her daughter for multiple complaints. For 1st complaint is weakness and dizziness. States for the past few weeks she has been having increased weakness and she will feel dizzy whenever she gets up. She states the room was not spinning but does feel like everything is moving even when she is standing still. Has had dizziness like this before about a year ago and symptoms went away after couple months. Due to neck issues she was having they could not definitively diagnose BPPV. Her daughter does state the patient's pain will weakness a few days ago. This time the patient states her bigger concern is the dizziness does not feel overtly weaker compared to her baseline. When asked if she has any shortness of breath she said mildly and her daughter states that the patient does seem to get winded much faster than previously. Patient denies any chest pain, abdominal pain, vision changes, numbness. Is complaining about a left sided posterior headache that radiates down her neck. The symptoms have been on and off for the past couple months and she currently is asymptomatic from it. Does have previous neck issues from your go also levels from arthritis but she states this pain seems a little bit different. Denies fevers, chills, diarrhea, constipation, dysuria. No other concerns noted. Related Data Home Medications ?Medication ?Instructions ?Recorded ?Confirmed aspirin 81 mg tablet,delayed 81 mg PO QDAY 09/26/23 06/27/25 release (Adult Aspirin Regimen) calcium carbonate (Calcium 600) 600 mg PO QDAY 09/26/23 06/27/25 cholecalciferol (vitamin D3) 10 10 mcg PO QDAY 09/26/23 06/27/25 mcg (400 unit) capsule [id number] 8 mg-folic 400 1 tab PO QDAY 09/26/23 06/27/25 mcg-K 50 mcg-lutein 300 mcg tablet (Centrum Silver Women) latanoprost 0.005 % eye drops drp ophthalmic (eye) 08/05/24 Allergies Allergy/AdvReac Type Severity Reaction Status Date / Time No Known Drug Allergies Allergy Verified 08/05/24 15:38 Review of Systems Status of ROS: Reports: 10 or more systems reviewed and unremarkable except as noted in History and below [facility] Medical History Right shoulder pain (~2018) ?M25.511 - Pain in right shoulder (ICD-10) Chest heaviness ?R07.89 - Other chest pain (ICD-10) 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), 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) No significant past medical history Surgical History History of breast biopsy ?Z98.890 - Other specified postprocedural states (ICD-10) Social History Smoking Status: Never smoker Do you use any of these nicotine containing products: None Second hand tobacco smoke exposure: Yes How often do you have a drink containing alcohol: never AUDIT-C Alcohol total score: 0 Non-prescribed substance use: denies use service: No Exam Narrative: Exam Narrative: Const: Well-nourished, Well-developed, in mild distress Eyes: PERRL, no conjunctival injection, and symmetrical lids HENT: Atraumatic external nose and ears. Moist mucous membranes. Neck: Symmetric, trachea midline, No thyromegaly. CVS: RRR, No murmurs or gallops. Peripheral pulses 2+ and equal in all extremities RESP: Unlabored respiratory effort. Clear to auscultation bilaterally. GI: Nontender/Nondistended, No rebound or guarding. MSK:Extremities w/o deformity, Normal Active ROM Skin: Warm, Dry. No rashes or lesions. Neuro: Normal Muscle tone, No focal neurological deficits. Psych: Awake, Alert, & Oriented x3. Appropriate mood and affect. Const: Vital Signs, click to edit/add: Vital Signs - 24 hr 06/27/25 17:10 06/27/25 18:19 06/27/25 18:30 Temperature 97.6 F Pulse Rate 61 60 Pulse Rate [Pulse Oximeter] 57 L Respiratory Rate 16 13 Blood Pressure Blood Pressure [Ri ght Upper Arm] 177/81 H Pulse Oximetry 95 96 95 Oxygen Delivery Me thod Room Air 06/27/25 18:45 06/27/25 19:00 06/27/25 19:15 Temperature Pulse Rate 55 L 59 L 58 L Pulse Rate [Pulse Oximeter] Respiratory Rate 16 33 H 19 Blood Pressure Blood Pressure [Ri ght Upper Arm] Pulse Oximetry 96 97 95 Oxygen Delivery Me thod 06/27/25 19:26 06/27/25 19:30 06/27/25 19:45 Temperature Pulse Rate 56 L 58 L 58 L Pulse Rate [Pulse Oximeter] Respiratory Rate 15 15 14 Blood Pressure 161/71 H Blood Pressure [Ri ght Upper Arm] Pulse Oximetry 95 94 96 Oxygen Delivery Me thod Room Air Course Vital Signs Vital signs: Initial Vital Signs Temperature 97.6 F 06/27/25 17:10 Temperature Source Temporal Artery Scan 06/27/25 17:10 Pulse Rate 57 L 06/27/25 17:10 Respiratory Rate 16 06/27/25 17:10 Blood Pressure 177/81 H 06/27/25 17:10 Blood Pressure Mean 113 H 06/27/25 17:10 Blood Pressure Position Sitting 06/27/25 17:10 Pulse Oximetry 95 06/27/25 17:10 Oxygen Delivery Method Room Air 06/27/25 17:10 Vital Signs Temperature 97.6 F 06/27/25 17:10 Pulse Rate 57 L 06/27/25 17:10 Respiratory Rate 16 06/27/25 17:10 Blood Pressure 177/81 H 06/27/25 17:10 Pulse Oximetry 95 06/27/25 17:10 Oxygen Delivery Method Room Air 06/27/25 17:10 Temperature 97.6 F 06/27/25 17:10 Pulse Rate 58 L 06/27/25 19:45 Respiratory Rate 14 06/27/25 19:45 Blood Pressure 161/71 H 06/27/25 19:26 Pulse Oximetry 96 06/27/25 19:45 Oxygen Delivery Method Room Air 06/27/25 19:26 Medications Administered Medications: Discontinued Medications Generic Name Dose Route Start Last Admin Trade Name Freq PRN Reason Stop Dose Admin Lactated Ringer's 1,000 mls @ 1,000 mls/hr 06/27/25 17:33 06/27/25 19:01 Lactated Ringers 1000 Ml IV 08/28/25 18:32 Infused .Q1H ONE Infusion Medical Decision Making MDM Narrative Medical decision making narrative: Patient is an 79-year-old female presenting to the emergency department for multiple complaints. Her main complaint is the dizziness. The differential diagnosis of vertigo is broad and includes common etiologies such as menieres disease, labyrinthitis, benign positional vertigo, otitis media, etc. More serious etiologies considered include central etiologies such as tumor, intracerebral bleed, dissection, ischemic cerebral vascular accident. Concerned she is also having a headache along with his dizziness I will order CT scan of her head for better evaluation. This will look for enter into a causes the could be causing her dizziness. She is also having some weakness. The differential diagnosis of generalized weakness is broad and includes infection, electrolyte abnormalities, ACS, arrhythmia, hypoglycemia, electrolyte abnormality, respiratory failure, anemia, hypothyroidism, dehydration, medication induced etc. will order CBC, CMP, viral swabs, EKG, troponin, magnesium. Will do a D-dimer for her shortness of breath. Self look for signs of PE. Either way do believe changes needs a CT scan and I am just waiting to see for needs contrast or not. A L of lactated Ringer's given for possible dehydration. She does admit she has not been eating and drinking as much as she should. Lab work returned showing no acute concerning abnormalities. Age adjusted D-dimer within normal limits. No signs of UTI. Viral swabs are negative. Head CT reviewed myself and the radiologist shows no acute concerning abnormalities. CT scan of her chest shows no acute concerning abnormalities. EKG shows no concerning abnormalities. Does have a rightward axis compared to previous EKG showing left word axis. Overall she is appearing well. On my review vital signs are stable throughout time in in the emergency department. Oximetry stayed in the mid to high 90s. air sampling and monitoring showed no concerning arrhythmias. At this time I do believe she is safe for discharge and she is agreeable to this plan. Lab Data Labs: Lab Results 06/27/25 06/27/25 06/27/25 Range/Units 17:34 17:50 18:14 WBC 5.87 (4.50-11.00) K/uL RBC 4.01 (4.00-5.20) m/uL Hgb 12.4 (12.0-16.0) gm/dL Hct 38.2 (33.0-51.0) % MCV 95 (80-100) fL MCH 31 (26-34) pg MCHC 33 (32-36) gm/dL RDW Coeff of Raimundo 12.2 (11.5-15.5) % Plt Count 308 (140-440) K/uL Neut % (Auto) 44.9 (42.0-72.0) % Lymph % (Auto) 41.1 (20-44) % [place] % (Auto) 10.1 (0.0-11.0) % Eos % (Auto) 3.4 (0.0-7.0) % Baso % (Auto) 0.5 (0.0-3.0) % Neut # (Auto) 2.64 (1.7-7.0) K/uL Lymph # (Auto) 2.41 (0.90-2.90) K/uL [place] # (Auto) 0.60 (0.00-0.90) K/UL Eos # (Auto) 0.20 (0.00-0.50) K/uL Baso # (Auto) 0.03 (0.00-0.30) K/uL Abs Immat Gran (auto) 0.00 (0.00-0.30) K/uL Imm/Tot Granulo (auto) 0.0 % D-Dimer Quant (PE/DVT) 0.69 H (0.00-0.50) ug/ml Sodium 138 (135-149) mmol/L Potassium 4.2 (3.6-5.1) mmol/L Chloride 103 (96-114) mmol/L Carbon Dioxide 30 (20-32) mmol/L Anion Gap 5 L (7-15) mEq/L BUN 19 (7-30) mg/dL Creatinine 0.9 (0.5-1.5) mg/dL Estimated Creat Clear 34.90 Estimated GFR 64 ml/min Glucose 94 (60-115) mg/dL Calcium 9.6 (8.4-10.6) mg/dL Magnesium 2.0 (1.5-2.6) mg/dL Total Bilirubin 0.5 (0.1-1.5) mg/dL AST 28 (12-35) U/L ALT 15 (4-35) U/L Alkaline Phosphatase 78 (40-150) U/L Troponin I < 0.01 (0.01-0.04) ng/mL Total Protein 7.3 (6.0-8.3) g/dL Albumin 4.3 (3.3-5.0) g/dL Urine Color Yellow (Yellow) Urine Appearance Clear (Clear) Urine pH 6.5 (5.0-8.5) Ur Specific [place] 1.025 (1.000-1.030) Urine Protein Negative (Negative) Urine Glucose (UA) Negative (Negative) Urine Ketones Negative (Negative) Urine Blood Trace-intact A (Negative) Urine Nitrite Negative (Negative) Urine Bilirubin Negative (Negative) Urine Urobilinogen 0.2 (0.2-1.0) Ur Leukocyte Esterase Trace A (Negative) Urine RBC 2-5 A (0-2) Urine WBC 2-5 (0-5) Ur Squamous Epith Cells Few (None-Few) Urine Bacteria Few A (None) SARS-CoV-2 (PCR) Negative SARS-CoV-2 (Negative) Influenza Type A (PCR) Negative PCR FLU A (Negative) Influenza Type B (PCR) Negative PCR FLU B (Negative) RSV (PCR) Negative PCR RSV (Negative) Imaging Data CT scan head: Attestation: I have reviewed the pertinent imaging results. Radiologist's impression: No CT evidence of acute cortical infarct. No acute intracranial hemorrhage. No other acute intracranial findings. Please note that all CT scans at this facility use dose modulation, iterative reconstruction, and/or weight-based dosing when appropriate to reduce radiation dose to as low as reasonably achievable. Dictated by Jacky Valencia MD @ 06/27/2025 6:23:[address] scan chest: Attestation: I have reviewed the pertinent imaging results. Radiologist's impression: 1. No acute cardiopulmonary process identified. 2. Borderline enlarged ascending aorta measuring up to 40 millimeters in diameter. Please note that all CT scans at this facility use dose modulation, iterative reconstruction, and/or weight-based dosing when appropriate to reduce radiation dose to as low as reasonably achievable. Dictated by Tony Martinez MD @ 06/27/2025 7:48:26 PM ECG Data Attestation: I personally reviewed and interpreted this ECG as follows: Prior ECG tracings: available for review Interpretation: Sinus bradycardia with a rate 54 beats per minute, normal intervals, rightward axis, no ST or T-wave abnormalities. Previous EKG did show a left axis Discharge Plan Discharge Clinical Impression: Dizziness Headache Qualifiers: Headache type: unspecified Headache chronicity pattern: unspecified pattern Intractability: not intractable Qualified Code(s): R51.9 - Headache, unspecified Patient Disposition: Home, Self-Care Condition: Stable Instructions: Dizziness (ED) Additional Instructions: I recommend following up with the primary care provider for all of his symptoms. With the ability to fully move your neck now you may be able to do the full therapy for vertigo. Of note your CT short a borderline enlarged ascending aorta. This is just slightly above normal and typically is not of concern but he should follow up with the primary care provider about it at your next visit. Return to emergency department for new or worsening symptoms Prescriptions: No Action cholecalciferol (vitamin D3) 10 mcg (400 unit) capsule 10 mcg PO QDAY calcium carbonate [Calcium 600] 600 mg calcium (1,500 mg) tablet 600 mg PO QDAY aspirin [Adult Aspirin Regimen] 81 mg tablet,delayed release (DR/EC) 81 mg PO QDAY Centrum Silver Women 8 mg iron-400 mcg-50 mcg tablet 1 tab PO QDAY latanoprost 0.005 % drops ophthalmic (eye) Follow Up/Referrals: Lata Olivera PA-C [Primary Care Provider, Family Practice] Stand Alone Forms: [employer] Info Instructions
[2025-06-27] MEDS: LACTATED RINGERS 1000 ML 1,000 ML IV (18:00)
[2025-06-27 18:24] LABS: Appearance Urine Clear (Clear)
[2025-06-27 18:32] LABS: Albumin* 4.3 g/dL (3.3-5.0); Chloride* 103 mmol/L (96-114); Potassium* 4.2 mmol/L (3.6-5.1); Sodium* 138 mmol/L (135-149)
[2025-06-27 18:34] LABS: Blood Urea Nitrogen* 19 mg/dL (7-30); Creatinine* 0.9 mg/dL (0.5-1.5); Est. Creatinine Clearance* 34.90; Estimated Glomerular Filt Rate 64 ml/min
[2025-06-27 18:35] LABS: Alanine Aminotransferase* 15 U/L (4-35); Alkaline Phosphatase* 78 U/L (40-150); Anion Gap 5 mEq/L (7-15); Aspartate Amino Transferase* 28 U/L (12-35); Bilirubin Total* 0.5 mg/dL (0.1-1.5); Calcium* 9.6 mg/dL (8.4-10.6); Carbon Dioxide* 30 mmol/L (20-32); Glucose* 94 mg/dL (60-115); Hematocrit 38.2 % (33.0-51.0); Hemoglobin* 12.4 gm/dL (12.0-16.0); Immature Granulocytes Abs Auto 0.00 K/uL (0.00-0.30); Immature Granulocytes Pct Auto 0.0 %; Lymphocytes Absolute Auto 2.41 K/uL (0.90-2.90); Mean Corpuscular HGB Conc 33 gm/dL (32-36); Mean Corpuscular Hemoglobin 31 pg (26-34); Mean Corpuscular Volume 95 fL (80-100); RDW Coefficient of Variation % 12.2 % (11.5-15.5); Red Blood Count 4.01 m/uL (4.00-5.20); Total Protein* 7.3 g/dL (6.0-8.3); White Blood Count* 5.87 K/uL (4.50-11.00)
[2025-06-27 18:36] LABS: Slide Review Reflex No
[2025-06-27 18:38] LABS: D Dimer Quantitative* 0.69 ug/ml (0.00-0.50)
--- NOTE | 2025-06-27 18:45 | CRLHL7_ITS ---
For Patients: As a result of the Century Cures Act, medical imaging exams and procedure reports are released immediately into your electronic medical record. You may view this report before your referring provider. If you have questions, please contact your health care provider. INDICATION: SOB,WEAKNESS. TECHNIQUE: CT chest without contrast. COMPARISON: None. FINDINGS: Lungs and pleura: 5 millimeter nodule of the left lung base (). Linear opacities in the bilateral lung bases likely atelectasis or scarring. Mild diffuse emphysematous changes. No pleural effusions, pleural thickening, or pneumothorax. Heart and vasculature: Heart size is normal. Coronary artery calcifications are noted. Borderline enlarged ascending aorta measuring up to 40 millimeters in diameter. Main pulmonary artery is normal in caliber.. Lymph nodes/mediastinum: No mediastinal, hilar, or axillary adenopathy. Chest wall: No masses. Upper abdomen: No significant findings. Bones: Unremarkable for age. IMPRESSION: 1. No acute cardiopulmonary process identified. 2. Borderline enlarged ascending aorta measuring up to 40 millimeters in diameter. Please note that all CT scans at this facility use dose modulation, iterative reconstruction, and/or weight-based dosing when appropriate to reduce radiation dose to as low as reasonably achievable. Dictated by Tony Martniez MD @ 06/27/2025 7:48:26 PM (Electronically Signed)
[2025-06-27 19:09] LABS: PCR FLU A Negative PCR FLU A (Negative); PCR FLU B Negative PCR FLU B (Negative); PCR RSV Negative PCR RSV (Negative); SARS PCR* Negative SARS-CoV-2 (Negative)
== END 2025-06-27 20:15 | disposition home or self-care (01) ==
PROVIDERS: Emergency Provider Student in an Organized Health Care Education/Training Program; PCP Physician Assistant Medical
DX: R42 Dizziness and giddiness (principal); R51.9 Headache, unspecified; R00.1 Bradycardia, unspecified
CPT/HCPCS: 36415; 70450; 71250; 80053; 81001; 83735; 84484; 85025; 85379; 87086; 87631; 93005; 96360; 99284; 99285; J7120